=== PATIENT | female | born 1955 | race Caucasian/White ===

== ENCOUNTER 2025-03-13 17:55 | Inpatient (IN) | payer MEDICARE, MEDICAID, SELFPAY ==
[2025-03-13 18:02] VITALS: BP 171/91; PULSE 89; RESP 17; TEMP 36.6; O2SAT 98; BMI 27.9
--- NOTE | 2025-03-13 18:16 | XRR_ITS ---
PROCEDURE INFORMATION: Exam: XR Chest Exam date and time: 03/13/2025 6:39 PM Age: 69 years old Clinical indication: Other: CVA TECHNIQUE: Imaging protocol: Radiologic exam of the chest. Views: 1 view. COMPARISON: No relevant prior studies available. FINDINGS: Lungs: Unremarkable. No consolidation. Pleural spaces: Unremarkable. No pleural effusion. No pneumothorax. Heart/Mediastinum: Unremarkable. No cardiomegaly. Vasculature: Aortic atherosclerosis. Bones/joints: [id number]-[id number] degenerative changes of the thoracic vertebral bodies. Mild degenerative changes of the AC joints. XR/XR chest 1V portable [id number] IMPRESSION: No definite acute infiltrate or effusion.
--- NOTE | 2025-03-13 18:16 | ECG_ITS ---
[facility] Test Date: 2025-03-13 Pat Name: Marlene Terry Department: Room: Gender: Female Faculty Support Coordinator: : 1955 Requested By: Ofelia Stevenson Order Number: [id number] Bonny MD: Christiano Ace M.D. Measurements Intervals [place] Rate: 81 P: -64 IA: 149 QRS: 64 QRSD: 84 T: 57 QT: 371 QTc: 431 Interpretive Statements SINUS RHYTHM Electronically Signed On 03-13-2025 18:25:11 HIM CODER by Christiano Ace M.D. [id number]
--- NOTE | 2025-03-13 18:16 | CTR_ITS ---
PROCEDURE INFORMATION: Exam: CT Head Without Contrast Exam date and time: 03/13/2025 6:27 PM Age: 69 years old Clinical indication: Stroke-like symptoms; Right upper extremity and right lower extremity numbness/paresthesia; Additional info: Symptoms of stroke 3 days ago, CT head/non-acute CVA TECHNIQUE: Imaging protocol: Computed tomography of the head without contrast. Radiation optimization: All CT scans at this facility use at least one of these dose optimization techniques: automated exposure control; mA and/or kV adjustment per patient size (includes targeted exams where dose is matched to clinical indication); or iterative reconstruction. Other technique: STROKE PROTOCOL was implemented. COMPARISON: No relevant prior studies available. RADIATION DOSE METRICS: Total DLP (mGy-cm): 1154.38 FINDINGS: Brain: Encephalomalacia is seen involving the left parietal lobe. Encephalomalacia is seen involving the right superior frontal gyrus and left middle frontal gyrus. Severe nonspecific white matter low attenuation which may be related to microvascular ischemic changes. At the left last year frontal lobe vertex, there is effacement of sulci with loss of the williamson-white distinction raising concern for an acute infarct. No acute intracranial hemorrhage. Cerebral ventricles: The ventricles and sulci are prominent in size compatible with mild atrophy. Paranasal sinuses: No fluid levels. Mastoid air cells: Visualized mastoid air cells are well aerated. Bones: No acute calvarial fracture. Soft tissues: Visualized soft tissues are unremarkable. CT/CT head thrombolytic [id number] IMPRESSION: Findings concerning for acute infarct involving the posterior left frontal lobe at the vertex. If symptoms persist, consider further evaluation with MRI, if there are no contraindications to obtaining a MRI scan. ASSESSMENT: ASPECTS (Yina Stroke Program Early CT Score) is 9.
--- NOTE | 2025-03-13 18:37 | ED_ITS ---
HPI - Neuro Symptoms/Deficit 2 General: Chief Complaint: Neuro Symptoms/Deficit Stated Complaint: Stroke like symptoms Time Seen by Provider: 03/13/25 18:14 History of Present Illness: Patient is a 69-year-old female history of COPD, HTN, smoking history, from [facility], reports to the emergency room with worsening neurological symptoms. Context: Patient had right upper arm weakness multiple days ago. First delineated at 3 days, however delineates now it 5 or 6. The last 1 or 2 days right lower extremity weakness. Today, worsening speech, confusion, word finding, dysarthria. Worsening gait. She does not have dizziness. Patient was seen at [facility], family states they recommended clopidogrel, however none was sent to the pharmacy. Family is frustrated regarding trying to get a hold of their primary care without success to make follow-up appointment and check on her medications. Associated symptoms: Reports vertigo; Deny chest pain, headache(s), nausea or vomiting Related Data Allergies Allergy/AdvReac Type Severity Reaction Status Date / Time No Known Allergies Allergy Verified 03/13/25 18:11 Review of Systems 2 General: Reports: 10 or more systems reviewed and unremarkable except in HPI and below Const: Denies: fever(s) or chills Eyes: Denies: change in vision or blurry vision ENMT: Denies: throat pain or mouth pain Card: Denies: chest pain or palpitations Resp: Denies: dyspnea or non-productive cough GI: Denies: abdominal pain, nausea or vomiting Musc: Reports: extremity pain; Denies: neck pain, back pain, joint pain or joint swelling Neuro: Reports: numbness in extremities, weakness in extremities, sensory changes, lack of coordination, difficulty walking, frequent falls, dizziness, vertigo, confusion, Slurred speech present and difficulty communicating thoughts; Denies: headache(s), behavioral changes, seizure-like activity, involuntary movements or restless legs Psych: Denies: anxiety or depression NIH stroke score 2 NIHSS: Level Of Consciousness - 1a: 0 Level Of Consciousness Questions - 1b: Both Correct Level Of Consciousness Commands - 1c: Both Correct Best Gaze - 2: Normal Visual Ashley - 3: No Visual Loss Facial Palsy - 4: N ormal Motor Arm Right - 5: No Movement Motor Arm Left - 5: No Drift M otor Leg Right - 6: No Movement Motor Leg Left - 6: No Drift Limb Ataxia - 7: Present In Two Limbs Sensory - 8: Mild To Moderate Loss Best Language - 9: No Aphasia Dysarthia - 10: Normal Extinction And Inattention - 11: 1 Score: Total Score: 12 Physical Exam 2 Const: COMMON NORMALS: no acute distress, patient oriented x3 and alert O RIENTATION/CONSCIOUSNESS: Yes oriented to person, Yes oriented to place and Yes oriented to time HENMT: COMMON NORMALS: normocephalic, atraumatic, hearing grossly normal bilaterally and EAC's normal HEAD & SCALP: normocephalic and atraumatic E XTERNAL AUDITORY CANAL: EAC's normal Chest: COMMONS NORMALS: normal inspection of the chest and normal palpation of entire chest wall Resp: COMMON NORMALS: normal respiratory effort, No retractions and clear to auscultation bilaterally AUSCULTATION: clear to auscultation bilaterally Cardio: COMMON NORMALS: regular rate and regular rhythm RATE: regular rate RHYTHM: regular rhythm GI: COMMON NORMALS: Normal to inspection, nondistended, normoactive bowel sounds present, Soft to palpation, non-tender and No hepatosplenomegaly present PALPATION: Yes Soft to palpation and Yes No hepatosplenomegaly present : COMMON NORMALS: Yes no CVA tenderness BLADDER/KIDNEY EXAM: Yes no CVA tenderness Back/Pelvis: COMMON NORMALS: no CVA tenderness and thoracic and lumbar spine normal to inspection Extremity: COMMON NORMALS: normal to inspection, full ROM and capillary refill normal Neuro: COMMON NORMALS: patient oriented x3 SENSORIUM/ORIENTATION: Yes alert, Yes oriented to person, Yes oriented to place and Yes oriented to time SPEECH: speech normal GAIT: Yes Unable to assess gait SENSORY EXAM: Yes extremities (Right upper and lower) PLANTAR REFLEX: downgoing: right PUPIL EXAM: Normal pupillary reactivity/response: bilateral Psych: COMMON NORMALS: mental status grossly normal, Normal thought process present, cooperative, normal affect and speech normal SPEECH: Yes normal speech THOUGHT PROCESS: Normal thought process present Skin: COMMON NORMALS: no rashes or lesions noted, no wounds and turgor normal GENERAL SKIN EXAM: no rashes or lesions noted and turgor normal Course 2 ED course: Patient is a 9-year-old female that comes in presenting with worsening neurological symptoms. 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 Discussed with hospitalist on tonight, that accepted admission. Call the neurologist, patient had the timeframe, however additional recommendations were of concern. Patient was already on aspirin, therefore she has failed aspirin. She did receive 4 aspirin here when she did not have hemorrhagic conversion, and was loaded on Plavix 300 mg. Will defer ongoing Plavix daily to hospitalist/neurologist Reevaluation(s): Reevaluation #1: Patient without aphasia, word finding. Family now adds they were admitted to the hospital at [facility] x 2 days. Consultations: Consultation #1: Called by Hina mims to update findings of acute CVA. Consultation #2: d/w Dr. Torres accepted admission Consultation #3: Dr. Benavides will consult in AM. Order placed Vital Signs: Vital signs: Vital Signs Temperature 97.8 F 03/13/25 18:02 Pulse Rate 77 03/13/25 19:41 Respiratory Rate 17 03/13/25 18:02 Blood Pressure 189/86 03/13/25 19:41 Pulse Oximetry 96 03/13/25 19:41 Oxygen Delivery Me thod Room Air 03/13/25 19:41 MDM - Neuro Symptoms/Deficit Medical Decision Making Patient is outside the window 8-hour/, outside of the 24-hour window for IR as well. She will receive aspirin, and will further discuss with hospitalist for possible admission for identification of deficits. Patient has NIH of 12. On full assessment, she did have aphasia, dysarthria. Her right arm is essentially unable to move, and her right leg moves approximately 3 to 4 inches, at the knee, and then can no longer move. She will need to be assessed for therapy. Given her severe stenosis to the left internal carotid artery, I have loaded on Plavix. I did call Dr. Benavides for consultation in AM. Medical Records I reviewed the patient's medical records. Lab Data I reviewed the patient's lab results. 03/13/25 18:38 03/13/25 18:38 Radiology Impressions Chest X-Ray 03/13/25 18:16 IMPRESSION: No definite acute infiltrate or effusion. Head CT 03/13/25 18:16 IMPRESSION: Findings concerning for acute infarct involving the posterior left frontal lobe at the vertex. If symptoms persist, consider further evaluation with MRI, if there are no contraindications to obtaining a MRI scan. ASSESSMENT: ASPECTS (Yina Stroke Program Early CT Score) is 9. Head/Neck CTA 03/13/25 19:32 IMPRESSION: 1. Left ICA demonstrates high-grade stenosis of the cavernous portion. 2. Right anterior cerebral artery demonstrates diminutive appearance above the level of the frontal horns. IMPRESSION: Thyroid nodules, consider nonurgent thyroid ultrasound for further characterization mild degenerative changes of cervical vertebral bodies. No acute stenosis or occlusion. COMMENTS: Consistent with the [employer]'s Incidental Findings Committee white paper (J Am Tea Radiol 2015): In patients aged 35 years and older with an incidental thyroid nodule equal to or greater than 1.[address], MRI or extrathyroidal US, further evaluation with dedicated thyroid US is recommended for patients with normal life expectancy and without comorbidities. For smaller nodules without suspicious features, no further evaluation or follow up is recommended. REFERENCES: NASCET CRITERIA. The degree of stenosis in the cervical segment of the internal carotid artery is based on NASCET criteria. Normal is no stenosis. Mild is less than 50% stenosis. Moderate is 50-69% stenosis. Severe is 70% to 99% stenosis. Total occlusion is no detectable patent lumen. Laboratory Results WBC 7.74 10^3/uL (3.29-11.43) 03/13/25 18:38 RBC 4.22 10^6/uL (3.85-5.65) 03/13/25 18:38 Hgb 12.30 g/dL (11.27-16.99) 03/13/25 18:38 Hct 38.2 % (36-47) 03/13/25 18:38 MCV 90.5 fl (85-98) 03/13/25 18:38 MCH 29.1 pg (27-33) 03/13/25 18:38 MCHC 32.2 g/dL (30-55) 03/13/25 18:38 RDW 13.6 % (12.1-15.1) 03/13/25 18:38 Plt Count 285 10^3/cmm (157-399) 03/13/25 18:38 MPV 9.9 fL (7.4-10.4) 03/13/25 18:38 Neut % (Auto) 62.2 % 03/13/25 18:38 Lymph % (Auto) 25.2 % 03/13/25 18:38 [place] % (Auto) 9.9 % 03/13/25 18:38 Eos % (Auto) 1.9 % 03/13/25 18:38 Baso % (Auto) 0.5 % 03/13/25 18:38 Neut # (Auto) 4.81 10^3/uL (1.8-7.7) 03/13/25 18:38 Lymph # (Auto) 2.0 10^3/uL (0.8-4.8) 03/13/25 18:38 [place] # (Auto) 0.8 10^3/uL (0.2-0.9) 03/13/25 18:38 Eos # (Auto) 0.2 10^3/uL (0.0-0.8) 03/13/25 18:38 Baso # (Auto) 0.0 10^3/uL (0.0-0.1) 03/13/25 18:38 Nucleated RBC % (auto) 0 % 03/13/25 18:38 Nucleated RBCs # 0.0 /100WBC 03/13/25 18:38 PT 12.90 SECONDS (12.1-14.9) 03/13/25 18:38 INR 0.91 (0.8-1.2) 03/13/25 18:38 APTT 33.1 SECONDS (23.9-36.7) 03/13/25 18:38 Sodium 143 mmol/L (136-145) 03/13/25 18:38 Potassium 3.5 mmol/L (3.5-5.1) 03/13/25 18:38 Chloride 104 mmol/L (98-107) 03/13/25 18:38 Carbon Dioxide 27 mmol/L (22-29) 03/13/25 18:38 Anion Gap 15.5 (5-19) 03/13/25 18:38 BUN 23 mg/dL (8-23) 03/13/25 18:38 Creatinine 0.8 mg/dL (0.5-0.9) 03/13/25 18:38 GFR Calculation 71.5 mL/min (90-130) L 03/13/25 18:38 Glucose 98 mg/dL (65-115) 03/13/25 18:38 POC Glucose 117 mg/dL (70-110) H 03/13/25 19:06 Calculated Osmolality 300 mOsm/kg (285-295) H 03/13/25 18:38 Calcium 9.4 mg/dL (8.5-10.5) 03/13/25 18:38 Total Bilirubin 0.4 mg/dL (0.15-1.2) 03/13/25 18:38 AST 17 U/L (0-32) 03/13/25 18:38 ALT 9 U/L (0-33) 03/13/25 18:38 Alkaline Phosphatase 107 U/L (35-105) H 03/13/25 18:38 Ammonia 16 umol/L (11-51) 03/13/25 18:38 Total Protein 6.9 g/dL (6.6-8.7) 03/13/25 18:38 Albumin 3.8 g/dL (3.5-5.2) 03/13/25 18:38 Globulin 3.1 g/dL (1.3-4.6) 03/13/25 18:38 Urine Color Yellow (Yellow) 03/13/25 20:18 Urine Appearance Clear (CLEAR) 03/13/25 20:18 Urine pH 5.5 (5-7) 03/13/25 20:18 Ur Specific [place] 1.026 (1.005-1.030) 03/13/25 20:18 Urine Protein 1+ (Negative) A 03/13/25 20:18 Urine Glucose (UA) Negative (Normal) 03/13/25 20:18 Urine Ketones Negative (Negative) 03/13/25 20:18 Urine Blood Negative (Negative) 03/13/25 20:18 Urine Nitrate Negative (Negative) 03/13/25 20:18 Urine Bilirubin Negative (Negative) 03/13/25 20:18 Urine Urobilinogen 1.0 mg/dL (Negative) 03/13/25 20:18 Ur Leukocyte Esterase Negative (Negative) 03/13/25 20:18 Amorphous Sediment Not Reportable 03/13/25 20:18 Urine Opiates Screen Negative ng/mL (Negative) 03/13/25 20:18 Ur Barbiturates Screen Negative ng/mL (Negative) 03/13/25 20:18 Ur Phencyclidine Scrn Negative ng/mL (Negative) 03/13/25 20:18 Ur Amphetamines Screen Negative ng/mL (Negative) 03/13/25 20:18 U Benzodiazepines Scrn Negative ng/mL (Negative) 03/13/25 20:18 Urine Cocaine Screen Negative ng/mL (Negative) 03/13/25 20:18 U Marijuana (THC) Screen Negative ng/mL (Negative) 03/13/25 20:18 All radiology interpretation(s) finalized by discharge EKG Data EKG 1: Interpretation: Normal sinus rhythm Discharge Plan Discharge Patient Disposition: Admitted As Inpatient Clinical Impression: Cerebrovascular accident Qualifiers: CVA mechanism: stenosis Precerebral and cerebral artery: carotid artery L aterality of affected vessel: left Qualified Code(s): I63.232 - Cerebral infarction due to unspecified occlusion or stenosis of left carotid arteries Condition: Stable Discharge Diet: Low Salt Coding Level of Care Code ED Gear Grinding Machine Operator for Christian Jack
[2025-03-13 18:46] LABS: Hematocrit 38.2 % (36-47); Hemoglobin 12.30 g/dL (11.27-16.99); Mean Corpuscular HGB Conc 32.2 g/dL (30-55); Mean Corpuscular Hemoglobin 29.1 pg (27-33); Mean Corpuscular Volume 90.5 fl (85-98); Nucleated Red Blood Cells % 0 %; Platelet Count 285 10^3/cmm (157-399); Red Blood Count 4.22 10^6/uL (3.85-5.65); White Blood Count 7.74 10^3/uL (3.29-11.43)
[2025-03-13 19:02] LABS: INR 0.91 (0.8-1.2); Prothrombin Time 12.90 SECONDS (12.1-14.9)
[2025-03-13 19:03] LABS: Partial Thromboplastin Time 33.1 SECONDS (23.9-36.7)
[2025-03-13 19:06] LABS: Ammonia 16 umol/L (11-51)
[2025-03-13 19:09] LABS: Alanine Aminotransferase 9 U/L (0-33); Albumin Level 3.8 g/dL (3.5-5.2); Alkaline Phosphatase 107 U/L (35-105); Anion Gap 15.5 (5-19); Aspartate Amino Transferase 17 U/L (0-32); Blood Urea Nitrogen 23 mg/dL (8-23); Calcium 9.4 mg/dL (8.5-10.5); Carbon Dioxide 27 mmol/L (22-29); Chloride 104 mmol/L (98-107); Globulin 3.1 g/dL (1.3-4.6); Glucose 98 mg/dL (65-115); Osmolality Calculated 300 mOsm/kg (285-295); Potassium 3.5 mmol/L (3.5-5.1); Sodium 143 mmol/L (136-145); Total Protein 6.9 g/dL (6.6-8.7)
[2025-03-13 19:11] VITALS: BP 179/79; PULSE 77; O2SAT 96
--- NOTE | 2025-03-13 19:32 | CTR_ITS ---
PROCEDURE INFORMATION: Exam: CTA Head With Contrast, Arteriography Exam date and time: 03/13/2025 7:50 PM Age: 69 years old Clinical indication: Other: CVA TECHNIQUE: Imaging protocol: Computed tomographic angiography of the head with contrast. Exam focused on the arteries. 3D rendering (Not supervised by radiologist): MIP and/or 3D reconstructed images were created by the technologist. Radiation optimization: All CT scans at this facility use at least one of these dose optimization techniques: automated exposure control; mA and/or kV adjustment per patient size (includes targeted exams where dose is matched to clinical indication); or iterative reconstruction. Contrast material: [id number]; Contrast volume: 100 ml; Contrast route: INTRAVENOUS (IV); COMPARISON: CT head thrombolytic [id number] 03/13/2025 6:27 PM RADIATION DOSE METRICS: Total DLP (mGy-cm): 449.76 FINDINGS: ANTERIOR CIRCULATION: Right internal carotid artery: Intracranial segment is patent with no significant stenosis. No aneurysm. Right middle cerebral artery: No occlusion or significant stenosis. No aneurysm. Right anterior cerebral artery: Right anterior cerebral artery demonstrates diminutive appearance above the level of the frontal horns. Left internal carotid artery: Left ICA demonstrates high-grade stenosis of the cavernous portion. Left middle cerebral artery: No occlusion or significant stenosis. No aneurysm. Left anterior cerebral artery: No occlusion or significant stenosis. No aneurysm. POSTERIOR CIRCULATION: Right vertebral artery: No occlusion or significant stenosis. No aneurysm. Left vertebral artery: No occlusion or significant stenosis. No aneurysm. Basilar artery: No occlusion or significant stenosis. No aneurysm. Right posterior cerebral artery: origin of right WOMEN'S SWIM COACH. Left posterior cerebral artery: No occlusion or significant stenosis. No aneurysm. Brain: No definite mass, mass effect, or midline shift. Cerebral ventricles: No ventriculomegaly. Bones/joints: Unremarkable. No acute fracture. Soft tissues: Unremarkable. PROCEDURE INFORMATION: Exam: CTA Neck With Contrast Exam date and time: 03/13/2025 7:50 PM Age: 69 years old Clinical indication: Other: CVA TECHNIQUE: Imaging protocol: Computed tomographic angiography of the neck with contrast. Exam focused on the cervical segments of the vasculature. 3D rendering (Not supervised by radiologist): MIP and/or 3D reconstructed images were created by the technologist. Radiation optimization: All CT scans at this facility use at least one of these dose optimization techniques: automated exposure control; mA and/or kV adjustment per patient size (includes targeted exams where dose is matched to clinical indication); or iterative reconstruction. Contrast material: [id number]; Contrast volume: 100 ml; Contrast route: INTRAVENOUS (IV); COMPARISON: CT head thrombolytic [id number] 03/13/2025 6:27 PM RADIATION DOSE METRICS: Total DLP (mGy-cm): 449.76 FINDINGS: Right common carotid artery: No stenosis. No dissection or occlusion. Right internal carotid artery: No stenosis of the extracranial segment. No dissection or occlusion. Right external carotid artery: No occlusion or stenosis of the origin. Left common carotid artery: No stenosis. No dissection or occlusion. Left internal carotid artery: No stenosis of the extracranial segment. No dissection or occlusion. Left external carotid artery: No occlusion or stenosis of the origin. Right vertebral artery: No stenosis. No dissection or occlusion. Left vertebral artery: No stenosis. No dissection or occlusion. Aorta: Aortic and carotid atheromatous vascular calcifications. Soft tissues: Normal. No significant soft tissue swelling. Bones/joints: Thyroid nodules, consider nonurgent thyroid ultrasound for further characterization mild degenerative changes of cervical vertebral bodies. CT/CT angio headneck* [id number] IMPRESSION: 1. Left ICA demonstrates high-grade stenosis of the cavernous portion. 2. Right anterior cerebral artery demonstrates diminutive appearance above the level of the frontal horns. IMPRESSION: Thyroid nodules, consider nonurgent thyroid ultrasound for further characterization mild degenerative changes of cervical vertebral bodies. No acute stenosis or occlusion. COMMENTS: Consistent with the [employer]'s Incidental Findings Committee white paper (J Am Tea Radiol 2015): In patients aged 35 years and older with an incidental thyroid nodule equal to or greater than 1.[address], MRI or extrathyroidal US, further evaluation with dedicated thyroid US is recommended for patients with normal life expectancy and without comorbidities. For smaller nodules without suspicious features, no further evaluation or follow up is recommended. REFERENCES: NASCET CRITERIA. The degree of stenosis in the cervical segment of the internal carotid artery is based on NASCET criteria. Normal is no stenosis. Mild is less than 50% stenosis. Moderate is 50-69% stenosis. Severe is 70% to 99% stenosis. Total occlusion is no detectable patent lumen.
[2025-03-13 19:41] VITALS: BP 189/86; PULSE 77; O2SAT 96
[2025-03-13 20:34] LABS: Glucose Urine UA Negative (Normal); Nitrate Urine Negative (Negative); Specific Gravity, Urine 1.026 (1.005-1.030)
[2025-03-13 20:39] LABS: Add Urine Microscopic? YES
[2025-03-13 20:41] LABS: PCP Screen Urine Negative (Negative)
[2025-03-13 22:00] VITALS: PULSE 80; O2SAT 94
--- NOTE | 2025-03-13 22:34 | P.HP_ITS ---
Providers/Chief Complaint 2 Admitting Physician: Domenic Torres MD Chief Complaint: Stroke like symptoms History of Present Illness Marlene Terry is a 69 year old female lives at home with her daughter Aron Vidal and son-in-law Ankur Mahan. The patient had stroke 2009 and has used a walker or cane since then. She had worsening in February and spent 2 days at [facility] in [facility]. She had slurred speech right mouth droop and not walking well. Care was done by telemedicine primarily. Patient was told that her blood was slowing through her veins but was not actually having a stroke. They recommended that she follow-up with primary care physician and consider being switched to Plavix but did not make that change at the time of hospitalization. The patient went home and did improve walking better and using the cane in a car lot on March 05. On March 06 the patient awoke not able to walk slurred speech right mouth droop again and now worsening right leg dysfunction not able to move the leg. She was encouraged to go to the hospital but declined. Daughter stated she was going to call 911 but patient said she was going to refuse the ambulance. Finally today blood pressure was elevated to 200 systolic and daughter stressed need to go to the hospital and patient agreed and they brought her in by private car. Patient denies headache and actually 5 years ago she had migraines now improved Review of Systems 2 Narrative: General No fevers chills Cardiovascular no chest pain palpitations or edema blood pressure has been high GI no nausea vomiting diarrhea constipation no dysuria hematuria incontinence Respiratory no shortness of breath cough wheezing Neuro no seizures she had a stroke in 2009 and waxing waning stroke symptoms since February Heme no history of blood clots in the legs or lungs Psych no history of psychiatric illness or admission Medications/Allergies Allergies Allergy/AdvReac Type Severity Reaction Status Date / Time No Known Allergies Allergy Verified 03/13/25 18:11 PFSH Acute 2 PFSH: Medical History (Updated 03/13/25 @ 22:52 by Domenic Torres MD) Tobacco abuse Social History (Updated 03/13/25 @ 22:45 by Domenic Torres MD) Smoking and tobacco/nicotine status: current every day tobacco/nicotine user cigarettes Packs smoked per day: 1 [ Other cigarette details: Lifelong smoker but previously was smoking 2 packs/day until current illnes] Alcohol intake: never Substance/Drug Use: never Additional social history: Once DO NOT RESUSCITATE as discussed with Ankur Sharp and Domenic Torres MD on 03/13/2025 Current occupational status: retired and disabled Previous occupational history: Worked a [employer] Vitals/I&O/Wt Last Vital Signs Temp 97.8 F 03/13/25 18:02 Pulse 80 03/13/25 22:00 Resp 17 03/13/25 18:02 BP 189/86 03/13/25 19:41 Pulse Ox 94 03/13/25 22:00 O2 Del Method Room Air 03/13/25 22:00 03/13/25 03/13/25 03/13/25 06:59 14:59 22:59 Intake Total 500 / 500 Balance 500 / 500 Weight last 48 hrs Weight 76.204 kg Physical Exam 2 Narrative: General well-developed well-nourished overweight female in no acute cardiopulmonary distress Oropharynx Mallampati 1 with 1 tooth lower right Neuro pupils equally round and reactive light accommodation external ocular movements are intact motor strength left arm she is able to raise her arm and use her hands normally with good strength left ankle flexion extension normal and she is also able to raise her leg off the bed. Right side she cannot raise her leg off the bed at all. She has minimal ankle flexion extension that she does not control well. Right arm she cannot raise off the bed but does have some movement. Sensation she has decreased sensation below the elbow on the right arm as well as below the knee on the right leg Face mild droop right side tongue protrusion mild deviation to the right speech is clear CV regular rate and rhythm Lungs clear to auscultation bilaterally Abdomen positive bowel tones soft nontender Calves trace ankle edema Data 03/13/25 18:38 03/13/25 18:38 CXR: My impression: Normal chest x-ray Radiologist's impression: No infiltrate CT Head: Radiologist's impression: IMPRESSION: Findings concerning for acute infarct involving the posterior left frontal lobe at the vertex. If symptoms persist, consider further evaluation with MRI, if there are no contraindications to obtaining a MRI scan. IMPRESSION: 1. Left ICA demonstrates high-grade stenosis of the cavernous portion. 2. Right anterior cerebral artery demonstrates diminutive appearance above the level of the frontal horns. EKG 1: My Interpretation: Normal sinus rhythm unremarkable A&P Assessment and plan 1. Cerebrovascular accident: Patient with dense right hemiplegia. She is outside the window of thrombolytics. Will continue Plavix after loaded in the ER. She has hypertension will be gently lowered start PT OT and speech therapy. Patient's stroke was 3 days ago but with some waxing and waning symptoms. EKG shows sinus rhythm but she will be on telemetry to look for A-fib and also echocardiogram to be done 2. 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 Hypertension: Goal blood pressure around 160 systolic for now 4. Tobacco abuse: Start nicotine patch 21 mg daily. 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
[2025-03-13 22:44] VITALS: BP 158/87; PULSE 79; O2SAT 95
[2025-03-13 23:01] VITALS: BMI 28.0
[2025-03-13 23:12] VITALS: PULSE 65
[2025-03-13] MEDS: LOSARTAN 25 MG TABLET PO (23:24)
[2025-03-14] VITALS (13 sets, daily range): BP systolic 146–219; BP diastolic 63–86; PULSE 75–105; RESP 15–17; TEMP 36.2–37.6; O2SAT 90–98
--- NOTE | 2025-03-14 08:00 | USCV_ITS ---
Marlene Terry Age: 69 Gender: F : 1955 Exam Date: 03/14/2025 00:36 Ordering Phys: Domenic Torres MD Technologist: NILESH Exam Location: [facility] [place] Indication: stroke BP: 189 / 86 HR: 64 Rhythm: Sinus Technical Quality: Adequate MEASUREMENTS (Male / Female) Normal Values 2D ECHO LV Diastolic Diameter PLAX 4.3 cm 4.2 - 5.9 / 3.9 - 5.3 cm IVS Diastolic Thickness 1.2 cm 0.6 - 1.0 / 0.6 - 0.9 cm IVS Systolic Thickness 2.0 cm LVPW Diastolic Thickness 1.4 cm 0.6 - 1.0 / 0.6 - 0.9 cm LVPW Systolic Thickness 1.5 cm LVOT Diameter 1.9 cm LV Ejection Fraction 2D Teich 67.2 % LV Ejection Fraction MOD 4C 69.9 % LV Ejection Fraction MOD 2C 56.0 % LV Ejection Fraction 2C AL 58.9 % LA Diameter 3.0 cm Aorta at Sinotubular Diameter 2.3 cm IVC Diameter 1.8 cm M-MODE LA Ao Ratio MM 1.4 AV Cusp Separation MM 1.8 cm DOPPLER AV Peak Velocity 129.0 cm/s LVOT Peak Velocity 131.0 cm/s AV Area Cont Eq vti 3.1 cm squared AV Area Cont Eq pk 2.9 cm squared MV Peak Velocity 103.0 cm/s MV Area PHT 2.5 cm squared Mitral E to A Ratio 0.9 TV Peak E Velocity 64.0 cm/s PV Peak Velocity 122.0 cm/s FINDINGS Left Ventricle Normal left ventricular size, systolic function and wall thickness, with no regional wall motion abnormalities. Left ventricular ejection fraction is estimated at 60 %. Grade I/IV diastolic dysfunction (abnormal relaxation filling pattern), normal to mildly elevated filling pressures. Right Ventricle Normal right ventricular size and systolic function. Right Atrium Normal right atrial size. Left Atrium Normal left atrial size. IA Septum Normal appearance of the interatrial septum. Mitral Valve Normal mitral valve structure. No mitral valve stenosis or regurgitation. Aortic Valve Mild aortic valve calcification. No aortic valve stenosis. Trace aortic valve regurgitation. Tricuspid Valve Normal tricuspid valve structure. No tricuspid valve stenosis or regurgitation. Normal pulmonary pressure. Pulmonic Valve Normal pulmonic valve structure. No pulmonic valve stenosis or regurgitation. Pericardium No pericardial effusion. Aorta Normal diameter of the aortic root and ascending thoracic aorta. IVC Normal IVC diameter. CONCLUSIONS Normal left ventricular size, systolic function and wall thickness, with no regional wall motion abnormalities. Left ventricular ejection fraction is estimated at 60 %. Grade I/IV diastolic dysfunction (abnormal relaxation filling pattern), normal to mildly elevated filling pressures. There is no pericardial effusion. No significant valvular abnormalities. Right atrial pressure is around 5 mm of mercury. Carolina Ellis MD (Electronically Signed) Final Date: 14 March 2025 17:25 S
--- NOTE | 2025-03-14 08:00 | USCV_ITS ---
Marlene Terry Age: 69 Gender: F : 1955 Exam Date: 03/14/2025 00:08 Ordering Phys: Domenic Torres MD Technologist: NILESH Exam Location: [facility] – [place] Indication: Left brain CVA = RIGHT hemiparesis, prior CVA 2009 Risk Factors: unknown Previous Vascular Surgery: unknown Right Brachial BP: 189 / 86 Left Brachial BP: / Right Left Velocity (cm/s) Spectral Plaque Velocity (cm/s) Spectral Plaque Syst/Diast Broadening Syst/Diast Broadening 78.90/ 15.40 Min Homo Prox CCA 108.70/ 15.00 Min None 81.50/ 16.70 Min Hetro Mid CCA 123.90/ 15.00 Min Hetro 55.60/ 11.50 Min Jevon Distal CCA 58.60 / 10.70 Min Hetro 61.30/ 13.60 Min Jevon Prox ICA 69.70 / 18.30 Min Hetro 59.90/ 15.40 Min Hetro Mid ICA 74.40 / 19.00 Min Hetro 87.30/ 26.90 Min Homo Distal ICA 93.00 / 21.90 Min Hetro 111.30 Min Hetro ECA 110.90 Min Homo 1.60 ICA/CCA 1.60 Antegrade Vertebral Antegrade 53.90/ 12.70 cm/s 52.10/ 12.90 cm/s Tri Subclavian Tri 141.4 152.2 0 0 CONCLUSIONS Right ICA stenosis <50%. Moderate atheromatous plaque right carotid bulb/ICA. Left ICA stenosis <50%. Mild atheromatous plaque left carotid bulb/ICA. Intimal thickening in the common carotid arteries and internal carotid arteries bilaterally. Normal antegrade Doppler flow noted in the right vertebral artery. Normal antegrade Doppler flow noted in the left vertebral artery. Domenic Gutierrez MD (Electronically Signed) Final Date: 17 March 2025 09:54 S
--- NOTE | 2025-03-14 08:42 | PM.CONSULT ---
Providers/Reason For Consult Consulting Physician/Specialty*: Dr. Shobha Benavides Reason for Consult*: Stroke Attending Physician: Eugene Syed History of Present Illness History of Present Illness Marlene Terry is a 69 year old woman who presented with a stroke that was 3 days old. There was no question about the diagnosis. She came with right sided weakness, previously seen at [facility] with the same diagnosis. Her CT scan was consistent with a subacute stroke in the left frontal region consistent with her symptoms. She had left internal carotid artery high-grade stenosis in the cavernous carotid on the left. Medications/Allergies Home Medications ?Medication ?Instructions ?Recorded ?Confirmed ?Last Taken ?Type albuterol 90 mcg-budesonide 80 2 inh inhalation Q4-5H PRN 03/13/25 03/13/25 Unknown History mcg/actuation HFA aerosol inhaler Shortness Of Breath (Airsupra) aspirin 81 mg chewable tablet 81 mg PO DAILY 03/13/25 03/13/25 03/13/25 08:00 History budesonide 160 mcg-glycopyr 9 2 inh inhalation BID 03/13/25 03/13/25 03/13/25 20:00 History mcg-formot 4.8 mcg/actuation HFA inhaler (Breztri Aerosphere) lisinopril 20 mg tablet 20 mg PO BID 03/13/25 03/13/25 03/13/25 20:00 History Allergies Allergy/AdvReac Type Severity Reaction Status Date / Time No Known Allergies Allergy Verified 03/13/25 18:11 Current Medications Generic Name Dose Route Start Last Admin Trade Name Freq PRN Reason Stop Dose Admin Aspirin 81 mg 03/14/25 05:00 03/14/25 04:19 Aspirin 81 Mg Ec Tablet PO 81 mg DAILY LINDSEY Administration Clopidogrel Bisulfate 75 mg 03/14/25 05:00 03/14/25 04:20 Clopidogrel 75 Mg Tablet PO 75 mg DAILY LINDSEY Administration Docusate Sodium 100 mg 03/14/25 05:00 03/14/25 04:20 Docusate Sodium 100 Mg Capsule PO 100 mg BID LINDSEY Administration Enoxaparin Sodium 40 mg 03/13/25 23:12 03/13/25 23:36 Enoxaparin 40 Mg/0.4 Ml Syringe SUBCUT 40 mg Q24H LINDSEY Administration Losartan Potassium 25 mg 03/13/25 22:25 03/13/25 23:24 Losartan 25 Mg Tablet PO 25 mg DAILY LINDSEY Administration PFSH Acute PFSH: Medical History (Updated 03/13/25 @ 22:52 by Domenic Torres MD) Tobacco abuse Social History (Updated 03/13/25 @ 22:45 by Domenic Torres MD) Smoking and tobacco/nicotine status: current every day tobacco/nicotine user cigarettes Packs smoked per day: 1 [ Other cigarette details: Lifelong smoker but previously was smoking 2 packs/day until current illnes] Alcohol intake: never Substance/Drug Use: never Additional social history: Once DO NOT RESUSCITATE as discussed with Ankur Sharp and Domenic Torres MD on 03/13/2025 Current occupational status: retired and disabled Previous occupational history: Worked a [employer] as [employer] Vitals/I&O/Wt Last Vital Signs Temp 98.9 F 03/14/25 07:18 Pulse 78 03/14/25 07:18 Resp 16 03/14/25 07:18 BP 161/78 03/14/25 07:18 Pulse Ox 93 03/14/25 07:18 O2 Del Method Room Air 03/14/25 07:18 03/13/25 03/14/25 03/14/25 22:59 06:59 14:59 Intake Total 500 / 500 Balance 500 / 500 Weight last 48 hrs Weight 171 lb 2 oz Weight 171 lb 2 oz Weight 168 lb 11.2 oz Weight 168 lb Physical Exam Narrative: GENERAL: The patient was well-nourished with a healthy appearance and appropriately groomed. MENTAL STATUS: She can repeat a simple and complex phrase. She has difficulty with word finding and very slow effortful speech. CRANIAL NERVES: No visual field cut. Extraocular movements were full without nystagmus. Mild visual motor perseveration. PERRLA. Mild right facial weakness with flattening of the right nasolabial fold. Facial sensation was intact to touch. Hearing was intact to soft spoken voice. Tongue and palate were midline. Shoulders were symmetric. MOTOR: Flaccid paralysis of the right arm and leg with no residual movement SENSATION: Pin, touch, vibration intact in the four extremities distally. COORDINATION: No specific cerebellar signs DEEP TENDON REFLEXES: Hyporeflexic on the right GAIT: Unable to stand HEENT: Swallowing study at the bedside was normal and speech therapy in attendance also found no difficulty swallowing. NECK: Carotid upstroke was strong bilaterally without bruits. The thyroid was not enlarged and there were no palpable lymph nodes. CHEST: Clear to auscultation. CARDIOVASCULAR: The heart sounds were normal without murmur or gallop. Regular rate and rhythm. EXTREMITIES: No deformities. Data 03/13/25 18:38 03/13/25 18:38 A&P Assessment and plan 1. 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 MRI would not provide any further information. She has a watershed infarct on the left distal to her tight intracranial carotid artery. Ultimately it may be lund to consider a stent but this would not be an ideal time since she has a fresh stroke. Neurorehab, Plavix, aspirin, smoking cessation and a atorvastatin 40 mg indicated. Her glucose was trace elevated and will require follow through. Plan: Recommend neuro rehab. I would like to see her in my office in April as I anticipate by then she may be released from rehab or if she does rehab in a local [facility] she can see me in the office at that time. Plan on MRI with MRA once she stabilizes and determine whether her intracranial carotid stenosis is stentable. She has agreed to stop smoking. 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
[2025-03-14 09:32] LABS: Cholesterol 132 mg/dL (0-200); HDL Cholesterol 51 mg/dL (60-100); Triglycerides 62 mg/dL (0-150)
[2025-03-14 09:37] LABS: Estmated Average Glucose 108; Hemoglobin A1C 5.4 % (4.0-6.0)
--- NOTE | 2025-03-14 09:47 | PC.SOCIAL ---
IMM Update pg 2 of IMM updated and reviewed w/ patient. Copy provided and copy dated, initialed and placed in chart.
--- NOTE | 2025-03-14 16:27 | P.PN_ITS ---
Vitals/I&O/Wt Last Vital Signs Temp 98.3 F 03/14/25 11:09 Pulse 75 03/14/25 11:09 Resp 16 03/14/25 11:09 BP 146/73 03/14/25 11:09 Pulse Ox 94 03/14/25 11:09 O2 Del Method Room Air 03/14/25 11:09 03/14/25 03/14/25 03/14/25 06:59 14:59 22:59 Intake Total 840 / 840 Balance 840 / 840 Weight last 48 hrs Weight 77.621 kg Weight 77.621 kg Weight 76.521 kg Weight 76.204 kg Physical Exam 2 Const: COMMON NORMALS: patient oriented x3 and alert GENERAL APPEARANCE: c ooperative ORIENTATION/CONSCIOUSNESS: Yes awake HENMT: COMMON NORMALS: oropharynx normal Neck/C-Spine: COMMON NORMALS: no JVD Resp: COMMON NORMALS: normal respiratory effort and clear to auscultation bilaterally AUSCULTATION: clear to auscultation bilaterally Cardio: COMMON NORMALS: no JVD, regular rhythm, S1 normal heart sound present, S2 normal heart sound present and No murmurs present (Cardio) RHYTHM: regular rhythm HEART SOUNDS: S1 normal heart sound present and S2 normal heart sound present GI: COMMON NORMALS: Normal to inspection, nondistended, normoactive bowel sounds present, Soft to palpation and non-tender PALPATION: Yes Soft to palpation Extremity: COMMON NORMALS: no joint enlargement and no pedal edema Neuro: COMMON NORMALS: patient oriented x3 and moves all extremities S ENSORIUM/ORIENTATION: Yes alert OTHER: Is awake and alert, following directions readily. No difficulty in tracking. Visual sotelo full to confrontation, no visual extinction. No difficulty with FNF on unaffected side. Sensory exam symmetrical to light touch, no sensory extinction. Residual right-sided upper and lower extremity weakness with minimal effort to elevate. Skin: COMMON NORMALS: no rashes or lesions noted GENERAL SKIN EXAM: no rashes or lesions noted Data 03/13/25 18:38 03/13/25 18:38 A&P Assessment and plan 1. Cerebrovascular accident: Persistent dense right hemiplegia after CVA with finding of left carotid bulb stenosis. Appreciate neurology consultation and recommendations, reviewed note. Pending further determination of whether this may be stentable after reassessment and further follow-up with MRI and MRI imaging. In the meantime continue Plavix aspirin, statin, we have discussed mocha cessation with her for 5 minutes, she understand she needs to quit elevated risk of recurrent stroke, but also other cardiovascular risks, risk of lung disease, cancer and other. Monitor for risk of bleeding with DAPT. Reassess CBC. Monitor on telemetry to assess for any atrial fibrillation. Requested A1c, lipid profile, follow-up. Echocardiogram and carotid Doppler pending. Follow- up results. Discussed with PT, would benefit from SNF rehabilitation. Case management will be working on this. 2. 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 Hypertension: Long-term blood pressure control, target 120/80. Continue losartan. Reassess blood pressures. 4. Tobacco abuse: Discussed smoking cessation as above. States she is now determined that she has from now on quit smoking. Nicotine patch 21 mg daily. PDMP PDMP Reviewed: Not Reviewed Attestations 2 Medical Necessity Statement*: Continue admission following CVA with residual dense right hemiplegia, pending further assessment, pending post discharge planning and arrangements. 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
[2025-03-15] VITALS (11 sets, daily range): BP systolic 159–202; BP diastolic 76–96; PULSE 68–89; RESP 16–17; TEMP 36.4–37.3; O2SAT 91–95; BMI 29.2
[2025-03-15] MEDS: LOSARTAN 25 MG TABLET 50 MG PO (01:23)
[2025-03-15 04:44] LABS: Hematocrit 33.7 % (36-47); Hemoglobin 10.90 g/dL (11.27-16.99); Mean Corpuscular HGB Conc 32.3 g/dL (30-55); Mean Corpuscular Hemoglobin 29.5 pg (27-33); Mean Corpuscular Volume 91.3 fl (85-98); Nucleated Red Blood Cells % 0 %; Platelet Count 270 10^3/cmm (157-399); Red Blood Count 3.69 10^6/uL (3.85-5.65); White Blood Count 6.40 10^3/uL (3.29-11.43)
--- NOTE | 2025-03-15 14:48 | P.PN_ITS ---
Subjective 2 Subjective: Denies any new symptoms. Denies any improvement in right side hemiplegia. Vitals/I&O/Wt Last Vital Signs Temp 97.7 F 03/15/25 12:10 Pulse 75 03/15/25 12:10 Resp 17 03/15/25 12:10 BP 178/83 03/15/25 12:10 Pulse Ox 95 03/15/25 12:10 O2 Del Method Room Air 03/15/25 04:00 03/14/25 03/15/25 03/15/25 22:59 06:59 14:59 Intake Total 360 / 1200 200 / 1400 480 / 480 Balance 360 / 1200 200 / 1400 480 / 480 Weight last 48 hrs Weight 79.878 kg Weight 77.621 kg Weight 77.621 kg Weight 76.521 kg Weight 76.204 kg Physical Exam 2 Const: COMMON NORMALS: patient oriented x3 and alert GENERAL APPEARANCE: c ooperative ORIENTATION/CONSCIOUSNESS: Yes awake HENMT: COMMON NORMALS: oropharynx normal Neck/C-Spine: COMMON NORMALS: no JVD Resp: COMMON NORMALS: normal respiratory effort and clear to auscultation bilaterally AUSCULTATION: clear to auscultation bilaterally Cardio: COMMON NORMALS: no JVD, regular rhythm, S1 normal heart sound present, S2 normal heart sound present and No murmurs present (Cardio) RHYTHM: regular rhythm HEART SOUNDS: S1 normal heart sound present and S2 normal heart sound present GI: COMMON NORMALS: Normal to inspection, nondistended, normoactive bowel sounds present, Soft to palpation and non-tender PALPATION: Yes Soft to palpation Extremity: COMMON NORMALS: no joint enlargement and no pedal edema Neuro: COMMON NORMALS: patient oriented x3 SENSORIUM/ORIENTATION: Yes alert OTHER: Is awake and alert, following directions readily. No difficulty in tracking. Visual sotelo full to confrontation, no visual extinction. No difficulty with FNF on unaffected side. Sensory exam symmetrical to light touch, no sensory extinction. Right-sided upper and lower extremity weakness with minimal effort to elevate. Skin: COMMON NORMALS: no rashes or lesions noted GENERAL SKIN EXAM: no rashes or lesions noted Data 03/15/25 04:09 03/13/25 18:38 A&P Assessment and plan 1. Cerebrovascular accident: Persistent symptoms so far without improvement. No additional symptoms. Continue telemetry monitoring. Reviewed echocardiogram, normal EF, grade 1 diastolic dysfunction. Reviewed A1c, lipid profile. Continue work with physical therapy. Continue arrangements for SNF. Discussed with case. Again encourage smoking cessation, she states that she has quit. 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 Appreciate neurology consultation and recommendations, reviewed note. Pending further determination of whether this may be stentable after reassessment and further follow-up with MRI and MRI imaging. In the meantime continue Plavix aspirin, statin, smoking cessation. Monitor for risk of bleeding with DAPT. Reassess CBC. Hemoglobin noted with decrease down to 10.9. Repeat blood counts. No outward bleeding noted. MCV 91.3. Check iron studies. Check Hemoccult. 2. 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 Hypertension: Hypertensive. Losartan dose increased up to 50. Continue. Monitor blood pressures. L 4. Tobacco abuse: Discussed smoking cessation as above. States she is now determined that she has from now on quit smoking. Nicotine patch 21 mg daily. PDMP PDMP Reviewed: Not Reviewed Attestations 2 Medical Necessity Statement*: Continue admission following CVA with residual dense right hemiplegia, pending further assessment, pending post discharge planning and arrangements. 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
[2025-03-15 17:49] LABS: Ferritin 176 ng/mL (15-150); Iron 59 ug/dL (37-145); Total Iron Binding Capacity 203 mcg/dl; Unsaturated Iron Binding 144 ug/dL (112-347)
[2025-03-16] VITALS (10 sets, daily range): BP systolic 122–182; BP diastolic 69–95; PULSE 69–81; RESP 16–17; TEMP 36.5–37; O2SAT 91–93; BMI 29.0
[2025-03-16 04:18] LABS: Hematocrit 35.1 % (36-47); Hemoglobin 11.30 g/dL (11.27-16.99); Mean Corpuscular HGB Conc 32.2 g/dL (30-55); Mean Corpuscular Hemoglobin 29.1 pg (27-33); Mean Corpuscular Volume 90.5 fl (85-98); Nucleated Red Blood Cells % 0 %; Platelet Count 306 10^3/cmm (157-399); Red Blood Count 3.88 10^6/uL (3.85-5.65); White Blood Count 5.55 10^3/uL (3.29-11.43)
[2025-03-16] MEDS: LOSARTAN 25 MG TABLET 50 MG PO (05:50)
--- NOTE | 2025-03-16 12:20 | PM.PN ---
Subjective Subjective: Denies any worsening, but also no improvement. Vitals/I&O/Wt Last Vital Signs Temp 98.4 F 03/16/25 11:45 Pulse 72 03/16/25 11:45 Resp 16 03/16/25 11:45 BP 139/72 03/16/25 11:45 Pulse Ox 92 03/16/25 11:45 O2 Del Method Room Air 03/16/25 11:45 03/15/25 03/16/25 03/16/25 22:59 06:59 14:59 Intake Total 360 / 840 0 / 840 480 / 480 Balance 360 / 840 0 / 840 480 / 480 Weight last 48 hrs Weight 78.97 kg Weight 79.878 kg Physical Exam Const: COMMON NORMALS: patient oriented x3 and alert GENERAL APPEARANCE: cooperative ORIENTATION/CONSCIOUSNESS: Yes awake HENMT: COMMON NORMALS: oropharynx normal Neck/C-Spine: COMMON NORMALS: no JVD Resp: COMMON NORMALS: normal respiratory effort and clear to auscultation bilaterally AUSCULTATION: clear to auscultation bilaterally Cardio: COMMON NORMALS: no JVD, regular rhythm, S1 normal heart sound present, S2 normal heart sound present and No murmurs present (Cardio) RHYTHM: regular rhythm HEART SOUNDS: S1 normal heart sound present and S2 normal heart sound present GI: COMMON NORMALS: Normal to inspection, nondistended, normoactive bowel sounds present, Soft to palpation and non-tender PALPATION: Yes Soft to palpation Extremity: COMMON NORMALS: no joint enlargement and no pedal edema Neuro: COMMON NORMALS: patient oriented x3 and moves all extremities SENSORIUM/ORIENTATION: Yes alert OTHER: Is awake and alert, following directions readily. No difficulty in tracking. Visual sotelo full to confrontation, no visual extinction. No difficulty with FNF on unaffected side. Sensory exam symmetrical to light touch, no sensory extinction. Right-sided upper and lower extremity weakness with minimal effort to elevate. Skin: COMMON NORMALS: no rashes or lesions noted GENERAL SKIN EXAM: no rashes or lesions noted Data 03/16/25 02:14 03/13/25 18:38 A&P Assessment and plan 1. Cerebrovascular accident: Persistent symptoms so far without improvement. No additional symptoms. Continue telemetry monitoring. Reviewed echocardiogram, normal EF, grade 1 diastolic dysfunction. Reviewed A1c, lipid profile. Continue work with physical therapy. Continue arrangements for SNF. Discussed with case. Again encourage smoking cessation, she states that she has quit. Reviewed PT note. 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 Appreciate neurology consultation and recommendations, reviewed note. Pending further determination of whether this may be stentable after reassessment and further follow-up with MRI and MRI imaging. In the meantime continue Plavix aspirin, statin, smoking cessation. Monitor for risk of bleeding with DAPT. Reassess CBC. Hemoglobin noted with decrease but up to 11.3 today. Without for bleeding. MCV 91.3. Reviewed iron studies. Without iron deficiency. Check Hemoccult -so far uncollected. Monitor for any bleeding. Discussed with nursing, human services case manager. 2. 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 3. Hypertension: Hypertensive. Losartan dose increased up to 50. Reviewed blood pressures, this morning still elevated, but so far appears to be responding to the increased dose losartan after second dose with improvement to 139/72. Hold off additional increases for now. 4. Tobacco abuse: Discussed smoking cessation as above. States she is now determined that she has from now on quit smoking. Nicotine patch 21 mg daily. PDMP PDMP Reviewed: Not Reviewed Attestations Medical Necessity Statement*: Continue admission following CVA with residual dense right hemiplegia, pending further assessment, pending post discharge planning and arrangements. 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
[2025-03-17] VITALS (7 sets, daily range): BP systolic 165–169; BP diastolic 73–83; PULSE 71–76; RESP 16–17; TEMP 36.4–36.8; O2SAT 91–94; BMI 28.8
[2025-03-17] MEDS: LOSARTAN 25 MG TABLET 50 MG PO (04:23)
[2025-03-17 04:53] LABS: Hematocrit 36.3 % (36-47); Hemoglobin 11.90 g/dL (11.27-16.99); Mean Corpuscular HGB Conc 32.8 g/dL (30-55); Mean Corpuscular Hemoglobin 29.6 pg (27-33); Mean Corpuscular Volume 90.3 fl (85-98); Nucleated Red Blood Cells % 0 %; Platelet Count 307 10^3/cmm (157-399); Red Blood Count 4.02 10^6/uL (3.85-5.65); White Blood Count 5.64 10^3/uL (3.29-11.43)
--- NOTE | 2025-03-17 07:34 | P.DS_ITS ---
Discharge Providers Date of Admission: 03/13/25 22:35 Date of Discharge: March 17, 2025 Attending Provider at Admission: Domenic Torres MD Attending Provider at Discharge: Eugene Syed Diagnoses at Discharge Discharge Diagnosis 1. Cerebrovascular accident: 2. 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 Hypertension: 4. Tobacco abuse: Reason for Visit Reason for Visit: Stroke like symptoms Brief History: Marlene Terry is a 69 year old female lives at home with her daughter Aron Vidal and son-in-law Ankur Mahan. The patient had stroke 2009 and has used a walker or cane since then. She had worsening in February and spent 2 days at [facility] in [facility]. She had slurred speech right mouth dr oop and not walking well. Care was done by telemedicine primarily. Patient was told that her blood was slowing through her veins but was not actually having a stroke. They recommended that she follow-up with primary care physician and consider being switched to Plavix but did not make that change at the time of hospitalization. The patient went home and did improve walking better and using the cane in a car lot on March 05. On March 06 the patient awoke not able to walk slurred speech right mouth droop again and now worsening right leg dysfunction not able to move the leg. She was encouraged to go to the hospital but declined. Daughter stated she was going to call 911 but patient said she was going to refuse the ambulance. Finally today blood pressure was elevated to 200 systolic and daughter stressed need to go to the hospital and patient agreed and they brought her in by private car. Patient denies headache and actually 5 years ago she had migraines now improved Hospital Course Hospital Course She had no worsening, but also no improvement of symptoms. She was assessed by neurology, with recommended continuation of aspirin, 21 days of Plavix, statin, and follow-up with neurology in office for further reassessment to determine whether left internal carotid artery stenosis may be stentable with the aid of MRI and MRA. Echocardiogram showed normal ejection fraction, grade 1 diastolic function. Atrial fibrillation noted in the hospital. A1c was normal. She is determined that she has quit smoking. Please continue to encourage and support. She is discharging to senior care facility for further rehabilitation. Physical Exam Const: COMMON NORMALS: patient oriented x3 and alert GENERAL APPEARANCE: cooperative ORIENTATION/CONSCIOUSNESS: Yes awake HENMT: COMMON NORMALS: oropharynx normal Neck/C-Spine: COMMON NORMALS: no JVD Resp: COMMON NORMALS: normal respiratory effort and clear to auscultation bilaterally AUSCULTATION: clear to auscultation bilaterally Cardio: COMMON NORMALS: no JVD, regular rhythm, S1 normal heart sound present, S2 normal heart sound present and No murmurs present (Cardio) RHYTHM: regular rhythm HEART SOUNDS: S1 normal heart sound present and S2 normal heart sound present GI: COMMON NORMALS: Normal to inspection, nondistended, normoactive bowel sounds present, Soft to palpation and non-tender PALPATION: Yes Soft to palpation Extremity: COMMON NORMALS: no joint enlargement and no pedal edema Neuro: COMMON NORMALS: patient oriented x3 and moves all extremities SENSORIUM/ORIENTATION: Yes alert OTHER: Is awake and alert, following directions readily. No difficulty in tracking. Visual sotelo full to confrontation, no visual extinction. No difficulty with FNF on unaffected side. Sensory exam symmetrical to light touch, no sensory extinction. Right-sided upper and lower extremity weakness with minimal effort to elevate. Skin: COMMON NORMALS: no rashes or lesions noted GENERAL SKIN EXAM: no rashes or lesions noted Discharge Data Studies Completed and Pending Completed Studies During Hospitalization Category Date Time Status CT angio head neck [CT angio headneck* [id number]] Cat Scan 03/13/25 19:[address] head thrombolytic [id number] Stat Cat Scan 03/13/25 18:16 Completed XR chest 1V portable [id number] Stat Exams 03/13/25 18:16 Completed CV. echo complete* [id number] Stat Ultrasound 03/14/25 08:00 Completed Pending at discharge Category Date Time Status Complete Blood Count w/Auto AM LABS Lab 03/18/25 04:00 Ordered Occult Blood Stool [Immunochemical Fecal OCB] Routine Lab 03/15/25 17:21 Uncollected CV carotid duplex BI* [id number] Routine Ultrasound 03/14/25 08:00 Taken Radiology Impressions Chest X-Ray 03/13/25 18:16 IMPRESSION: No definite acute infiltrate or effusion. Head CT 03/13/25 18:16 IMPRESSION: Findings concerning for acute infarct involving the posterior left frontal lobe at the vertex. If symptoms persist, consider further evaluation with MRI, if there are no contraindications to obtaining a MRI scan. ASSESSMENT: ASPECTS ([place] Stroke Program Early CT Score) is 9. ADDENDUM: 03/13/25 [id number] ADDENDUM: Typographical error in the body of the report. Correction is as follows: Brain: Encephalomalacia is seen involving the left parietal lobe. Encephalomalacia is seen involving the right superior frontal gyrus and left middle frontal gyrus. Severe nonspecific white matter low attenuation which may be related to microvascular ischemic changes. At the posterior left frontal lobe vertex, there is effacement of sulci with loss of the williamson-white distinction raising concern for an acute infarct. No acute intracranial hemorrhage. Head/Neck CTA 03/13/25 19:32 IMPRESSION: 1. Left ICA demonstrates high-grade stenosis of the cavernous portion. 2. Right anterior cerebral artery demonstrates diminutive appearance above the level of the frontal horns. IMPRESSION: Thyroid nodules, consider nonurgent thyroid ultrasound for further characterization mild degenerative changes of cervical vertebral bodies. No acute stenosis or occlusion. COMMENTS: Consistent with the [employer]'s Incidental Findings Committee white paper (J Am Tea Radiol 2015): In patients aged 35 years and older with an incidental thyroid nodule equal to or greater than 1.[address], MRI or extrathyroidal US, further evaluation with dedicated thyroid US is recommended for patients with normal life expectancy and without comorbidities. For smaller nodules without suspicious features, no further evaluation or follow up is recommended. REFERENCES: NASCET CRITERIA. The degree of stenosis in the cervical segment of the internal carotid artery is based on NASCET criteria. Normal is no stenosis. Mild is less than 50% stenosis. Moderate is 50-69% stenosis. Severe is 70% to 99% stenosis. Total occlusion is no detectable patent lumen. Laboratory Results WBC 5.64 10^3/uL (3.29-11.43) 03/17/25 04:36 RBC 4.02 10^6/uL (3.85-5.65) 03/17/25 04:36 Hgb 11.90 g/dL (11.27-16.99) 03/17/25 04:36 Hct 36.3 % (36-47) 03/17/25 04:36 MCV 90.3 fl (85-98) 03/17/25 04:36 MCH 29.6 pg (27-33) 03/17/25 04:36 MCHC 32.8 g/dL (30-55) 03/17/25 04:36 RDW 13.4 % (12.1-15.1) 03/17/25 04:36 Plt Count 307 10^3/cmm (157-399) 03/17/25 04:36 MPV 9.7 fL (7.4-10.4) 03/17/25 04:36 Neut % (Auto) 57.6 % 03/17/25 04:36 Lymph % (Auto) 29.4 % 03/17/25 04:36 [place] % (Auto) 8.9 % 03/17/25 04:36 Eos % (Auto) 2.8 % 03/17/25 04:36 Baso % (Auto) 1.1 % 03/17/25 04:36 Neut # (Auto) 3.25 10^3/uL (1.8-7.7) 03/17/25 04:36 Lymph # (Auto) 1.7 10^3/uL (0.8-4.8) 03/17/25 04:36 [place] # (Auto) 0.5 10^3/uL (0.2-0.9) 03/17/25 04:36 Eos # (Auto) 0.2 10^3/uL (0.0-0.8) 03/17/25 04:36 Baso # (Auto) 0.1 10^3/uL (0.0-0.1) 03/17/25 04:36 Nucleated RBC % (auto) 0 % 03/17/25 04:36 Nucleated RBCs # 0.0 /100WBC 03/17/25 04:36 PT 12.90 SECONDS (12.1-14.9) 03/13/25 18:38 INR 0.91 (0.8-1.2) 03/13/25 18:38 APTT 33.1 SECONDS (23.9-36.7) 03/13/25 18:38 Sodium 143 mmol/L (136-145) 03/13/25 18:38 Potassium 3.5 mmol/L (3.5-5.1) 03/13/25 18:38 Chloride 104 mmol/L (98-107) 03/13/25 18:38 Carbon Dioxide 27 mmol/L (22-29) 03/13/25 18:38 Anion Gap 15.5 (5-19) 03/13/25 18:38 BUN 23 mg/dL (8-23) 03/13/25 18:38 Creatinine 0.8 mg/dL (0.5-0.9) 03/13/25 18:38 GFR Calculation 71.5 mL/min (90-130) L 03/13/25 18:38 Glucose 98 mg/dL (65-115) 03/13/25 18:38 POC Glucose 96 mg/dL (70-110) 03/17/25 06:34 Estimat Average Glucose 108 03/13/25 18:38 Hemoglobin A1c 5.4 % (4.0-6.0) 03/13/25 18:38 Calculated Osmolality 300 mOsm/kg (285-295) H 03/13/25 18:38 Calcium 9.4 mg/dL (8.5-10.5) 03/13/25 18:38 Iron 59 ug/dL (37-145) 03/15/25 04:09 TIBC 203 mcg/dl 03/15/25 04:09 % Saturation 29.0 % (20-50) 03/15/25 04:09 Unsat Iron Binding 144 ug/dL (112-347) 03/15/25 04:09 Ferritin 176 ng/mL (15-150) H 03/15/25 04:09 Total Bilirubin 0.4 mg/dL (0.15-1.2) 03/13/25 18:38 AST 17 U/L (0-32) 03/13/25 18:38 ALT 9 U/L (0-33) 03/13/25 18:38 Alkaline Phosphatase 107 U/L (35-105) H 03/13/25 18:38 Ammonia 16 umol/L (11-51) 03/13/25 18:38 Total Protein 6.9 g/dL (6.6-8.7) 03/13/25 18:38 Albumin 3.8 g/dL (3.5-5.2) 03/13/25 18:38 Globulin 3.1 g/dL (1.3-4.6) 03/13/25 18:38 Triglycerides 62 mg/dL (0-150) 03/13/25 18:38 Cholesterol 132 mg/dL (0-200) 03/13/25 18:38 LDL Cholesterol, Calc 69 mg/dL (50-129) 03/13/25 18:38 HDL Cholesterol 51 mg/dL (60-100) L 03/13/25 18:38 LDL/HDL Ratio 1.35 RATIO (0.00-3.22) 03/13/25 18:38 Cholesterol/HDL Ratio 2.59 mg/dL (0.0-4.40) 03/13/25 18:38 Urine Color Yellow (Yellow) 03/13/25 20:18 Urine Appearance Clear (CLEAR) 03/13/25 20:18 Urine pH 5.5 (5-7) 03/13/25 20:18 Ur Specific [place] 1.026 (1.005-1.030) 03/13/25 20:18 Urine Protein 1+ (Negative) A 03/13/25 20:18 Urine Glucose (UA) Negative (Normal) 03/13/25 20:18 Urine Ketones Negative (Negative) 03/13/25 20:18 Urine Blood Negative (Negative) 03/13/25 20:18 Urine Nitrate Negative (Negative) 03/13/25 20:18 Urine Bilirubin Negative (Negative) 03/13/25 20:18 Urine Urobilinogen 1.0 mg/dL (Negative) 03/13/25 20:18 Ur Leukocyte Esterase Negative (Negative) 03/13/25 20:18 Urine RBC 3-5 /hpf (0-2) 03/13/25 20:18 Urine WBC 0-5 /hpf (0-5) 03/13/25 20:18 Ur Squamous Epith Cells 0-5 /hpf (0-5) 03/13/25 20:18 Calcium Oxalate Crystal 5-10 /hpf H 03/13/25 20:18 Amorphous Sediment Not Reportable 03/13/25 20:18 Urine Bacteria None seen /hpf (NONE) 03/13/25 20:18 Hyaline Casts 2.46 /lpf 03/13/25 20:18 Urine Opiates Screen Negative ng/mL (Negative) 03/13/25 20:18 Ur Barbiturates Screen Negative ng/mL (Negative) 03/13/25 20:18 Ur Phencyclidine Scrn Negative ng/mL (Negative) 03/13/25 20:18 Ur Amphetamines Screen Negative ng/mL (Negative) 03/13/25 20:18 U Benzodiazepines Scrn Negative ng/mL (Negative) 03/13/25 20:18 Urine Cocaine Screen Negative ng/mL (Negative) 03/13/25 20:18 U Marijuana (THC) Screen Negative ng/mL (Negative) 03/13/25 20:18 Vitals Last Vital Signs Temp 98.2 F 03/17/25 04:00 Pulse 74 03/17/25 05:15 Resp 17 03/17/25 04:00 BP 169/82 03/17/25 04:00 Pulse Ox 91 03/17/25 04:00 O2 Del Method Room Air 03/17/25 04:00 Discharge Plan Discharge Patient Disposition: Xfer SNF Condition: Stable Prescriptions: New clopidogrel 75 mg Tablet 75 mg PO DAILY Qty: 17 0RF atorvastatin [Lipitor] 40 mg tablet 40 mg PO DAILY Qty: 90 0RF Continued lisinopril 20 mg Tablet 20 mg PO BID aspirin 81 mg Tablet,Chewable 81 mg PO DAILY Breztri Aerosphere 160-9-4.8 mcg/actuation Hfa Aerosol Inhaler 2 inh INHALATION BID Airsupra 90-80 mcg/actuation Hfa Aerosol Inhaler 2 inh INHALATION Q4-5H PRN (Reason: Shortness Of Breath) Discharge Order = DC NOW: Discharge Order (Routine); Ordered 03/17/25 Ordered By: Eugene Syed Referrals: PCP [Other] - 4-7 days [facility] [Outside] Shobha Benavides MD [Physician, Neurology] - 3 weeks Referral Note: We have notified your physician's clinic of the need for a follow-up appointment to be scheduled. If you have not heard from them within the next 2 business days, please call them directly. Discharge Diet: Low Salt Discharge Activity: As per PT/OT instructions Patient Instructions: How to Stop Smoking (GEN), Cigarette Smoking and Your Health (GEN), Ischemic Stroke (GEN), Patient Portal & [facility] Instructions Activity Restrictions/Additional Instructions: Please do not restart smoking due to risk of recurrent stroke, risk of heart attack, lung disease, cancers. Continue aspirin and Plavix. Monitor for risk of bleeding. Avoid falls and injury. Minor bleeding from small cuts or injuries will resolve with holding pressure. In case of major bleeding, bleeding that is not resolving or urinary, GI or other bleeding, seek medical attention. Seek medical attention in case of worsening or new concerning symptoms. 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
--- NOTE | 2025-03-17 10:57 | PC.NURSE ---
patient resource coordinator rounds @ 1015- gave patient stroke education book.
== END 2025-03-17 11:15 | disposition skilled nursing facility (03) | DRG 65 ==
LOC: ER 22:25 → MEDSURG 22:35
PROVIDERS: Admitting Provider Internal Medicine; Emergency Provider Physician Assistant; Visit Provider Internal Medicine
DX: I63.232 Cerebral infarction due to unspecified occlusion or stenosis of left carotid arteries (principal); G81.91 Hemiplegia, unspecified affecting right dominant side; I10 Essential (primary) hypertension; E66.3 Overweight; Z68.28 Body mass index [BMI] 28.0-28.9, adult; F17.210 Nicotine dependence, cigarettes, uncomplicated
CPT/HCPCS: 36415; 36416; 70450; 70496; 70498; 71045; 80053; 80061; 80306; 81001; 82140; 82728; 82962; 83036; 83540; 83550; 85025; 85610; 85730; 92523; 92610; 93005; 93306; 93880; 94664; 96360; 96372; 97110; 97162; 97165; 97530; 99285; J1650; J7040; J9999; L3924